=== PATIENT | female | born 1990 | race Caucasian/White ===

== ENCOUNTER 2018-05-20 14:00 | Observation (INO) | payer OTHER ==
[~2018-05-20] VITALS: Ht 170.2 cm; Wt 114.3 kg
[2018-05-20 14:56] LABS: APPEARANCE,URINE Clear (CLEAR); BILIRUBIN,URINE Negative (NEGATIVE); COLOR,URINE Yellow (YELLOW); GLUCOSE, URINE (UA) 250 mg/dL (NEGATIVE); KETONES,URINE Negative (NEGATIVE); LEUKOCYTE ESTERASE ,URINE Small (NEGATIVE); NITRATE,URINE Negative (NEGATIVE); OCCULT BLOOD,URINE Negative (NEGATIVE); PH,URINE 5.5 (5.0-8.0); PROTEIN,URINE Negative (NEGATIVE)
[2018-05-20 15:04] LABS: AMPHET/METH SCREEN,URINE NEGATIVE (NEGATIVE); BARBITURATE SCREEN, URINE NEGATIVE (NEGATIVE); BENZODIAZEPINES SCREEN,URINE NEGATIVE (NEGATIVE); CANNABINOID SCREEN,URINE NEGATIVE (NEGATIVE); COCAINE SCREEN,URINE NEGATIVE (NEGATIVE); OPIATE SCREEN,URINE NEGATIVE (NEGATIVE); PHENCYCLIDINE SCREEN,URINE NEGATIVE (NEGATIVE)
[2018-05-20 15:39] LABS: BACTERIA,URINE Rare /HPF (None Seen); RBC,URINE 0-1 /HPF (0-1); WBC,URINE 0-1 /HPF (0-1)
[2018-05-20 15:40] LABS: CALCIUM OXALATE CRYSTALS,UR Moderate /LPF (None Seen); SQUAMOUS EPITHELIAL CELL,UR Few /HPF (0-2)
== END 2018-05-20 16:21 | disposition home or self-care (01) ==
LOC: EDH 14:00 → LDH 14:26
DX: O26.852 Spotting complicating pregnancy, second trimester (principal); O36.8120 Decreased fetal movements, second trimester, not applicable or unspecified; O26.892 Other specified pregnancy related conditions, second trimester; R10.11 Right upper quadrant pain; Z3A.24 24 weeks gestation of pregnancy; Z79.899 Other long term (current) drug therapy
CPT/HCPCS: 80305; 81001; 99284; G0378 ×2